=== PATIENT | male | born 1950 | race Caucasian/White ===

== ENCOUNTER 2021-08-01 18:03 | Emergency (ER) | payer OTHER, MEDICARE ==
[~2021-08-01] VITALS: Ht 182.9 cm; Wt 118.2 kg
[2021-08-01] MEDS ORDERED: NAPROXEN500 MG PO (19:58)
[2021-08-01 21:15] VITALS: BP 167/78
== END 2021-08-01 21:30 | disposition home or self-care (01) | DRG 552 ==
LOC: ED 18:03
DX: S13.9XXA Sprain of joints and ligaments of unspecified parts of neck, initial encounter (principal); S43.401A Unspecified sprain of right shoulder joint, initial encounter; I10 Essential (primary) hypertension; V49.40XA Driver injured in collision with unspecified motor vehicles in traffic accident, initial encounter